=== PATIENT | female | born 1970 | race Caucasian/White ===

== ENCOUNTER 2021-03-24 17:13 | Emergency (ER) | payer OTHER, SELFPAY ==
[2021-03-24 17:57] VITALS: BP 124/77; PULSE 76; RESP 16; TEMP 37.2; O2SAT 96; BMI 22.6
--- NOTE | 2021-03-24 19:06 | ED.EAR ---
HPI - Ear Problem General Chief complaint: Ear Problems Stated complaint: ear infection? Source: patient Mode of arrival: ambulatory Limitations: no limitations History of Present Illness HPI Narrative: 50-year-old female presents with a sharp pain and lump behind her right ear. States that when she touches the back of the ear the pain radiates down to her throat. Feels like she has an ear infection, also states that she got some water stuck in her ear and it would not come out. MD Complaint: ear pain Location: right ear Duration: constant Severity: moderate Exacerbating factors: palpation Discharge from ear: no Treatment prior to arrival: none Related Data Allergies Allergy/AdvReac Type Severity Reaction Status Date / Time amoxicillin [AMOXICILLIN] Allergy Unknown HIVES Unverified 04/01/20 19:06 Penicillins [PCN] Allergy Unknown HIVES Unverified 04/01/20 19:06 Review of Systems Review of Systems: Constitutional: No Fever, No Chills ENT/Mouth: Positive right Ear Pain, No Hoarseness, No sore throat Eyes: No Eye Pain, No Swelling, No Redness, No Foreign Body Cardiovascular: No Chest Pain, No SOB Respiratory: No Cough, No Dyspnea Gastrointestinal: No Nausea, No Vomiting, No Diarrhea, No abdominal Pain Genitourinary: No Dysuria, No Hematuria Musculoskeletal: No joint pain, No Myalgias, No Joint Swelling Skin: No Skin lacerations, No rash Neuro: No Weakness, No Numbness, No Paresthesias, No Loss of Consciousness, No Dizziness, No Headache Psych: No Anxiety/Panic, No Depression Heme/Lymph: no easy bruising, no Lymphadenopathy Endocrine: No Polyuria, No Polydipsia Yes all other systems are reviewed and are negative [facility] Past Medical History Attestation statement: The following information was validated with the patient. Source: old records reviewed Social History Social History Advance Directives: No Physical Exam Vital Signs: Vital Signs: Last Vital Signs Temp 98.9 F 03/24/21 17:57 Pulse 76 03/24/21 17:57 Resp 16 03/24/21 17:57 BP 124/77 03/24/21 17:57 Pulse Ox 96 03/24/21 17:57 Body Mass Index 22.6 Appearance: Alert. Oriented X3. No acute distress. Head: Normal external exam. Normocephalic. Atraumatic. No Sanchez signs noted. No raccoon eyes noted Eyes: PERRLA. EOMI. Conjunctiva and sclera normal. Eyelids normal. ENT: TM's Normal. Pharynx normal. Uvula midline. Moist mucous membranes. No trismus noted. No drooling noted. No muffled voice noted. Neck: Normal inspection. Neck supple. No adenopathy. Thyroid Normal. No meningeal signs. No neck mass noted. CVS: Normal heart rate and rhythm. Heart sound normal. No murmurs noted. Pulses equal to all extremities. Respiratory: No respiratory distress. Painless inspiration. Abdomen: Soft and nontender. Back: Full range of motion noted. Skin: Skin warm and dry. Normal skin color. Pimple noted to the back of the right ear just below the mastoid. Extremities: No lower extremity edema. Extremities exhibit normal range of motion. Extremities nontender. Neuro: cranial nerves 2-12 intact, no focal neural deficits, strength 5/5 to all extremities, No motor deficit. No sensory deficit. Reflexes normal. Course Course Course Narrative: 50-year-old female presents with pain to the right ear, physical exam shows a pimple to the back of the ear right below the mastoid. Tympanic membranes are intact, no bulging or erythema, bilateral auditory canals are normal. Oropharyngeal exam is normal. Will give patient Tylenol. No indication for infection at this time. Patient verbalized understanding of and agrees to plan of care discharge home. MDM - Ear Differential Diagnosis Differential diagnosis: Likely otitis externa, otitis media, ruptured TM and cerumen impaction Medical Records Attestation: I reviewed the patient's medical records. Discharge Plan Discharge Clinical Impression: Skin pimple Acute ear pain Qualifiers: Laterality: right Qualified Code(s): H92.01 - Otalgia, right ear Patient Disposition: Home, Self-Care Instructions: Earache (ED) Additional Instructions: You were evaluated for right ear pain with lump behind the ear lobe. You have a small pimple behind the ear lobe. Visual exam action of a auditory canals and tympanic membranes are normal. Please use Tylenol Motrin as needed for pain management. Thank you for choosing this emergency department for evaluation. Please follow-up with primary care physician as needed. Return to the emergency department for any new, concerning, or worsening symptoms. Interventions: ED Discharge Assessment Last Done: 03/24/21 19:37 Discharge Date/Time: 03/24/21 19:38
[2021-03-24] MEDS: Acetaminophen 325 MG TABLET 650 MG PO (19:35)
== END 2021-03-24 19:38 | disposition home or self-care (01) ==
PROVIDERS: Emergency Provider Emergency Medicine; PCP Internal Medicine
DX: H92.01 Otalgia, right ear (principal); R23.8 Other skin changes
CPT/HCPCS: 99283

== ENCOUNTER 2021-08-17 09:46 | Emergency (ER) | payer OTHER, SELFPAY ==
[2021-08-17 09:52] VITALS: BP 121/77; PULSE 74; RESP 16; TEMP 36.9; O2SAT 98; BMI 23.1
--- NOTE | 2021-08-17 10:32 | ED_ITS ---
HPI - Ear Problem General Chief complaint: Ear Problems Stated complaint: Earache Time Seen by Provider: 08/17/21 10:32 Source: patient Mode of arrival: ambulatory Limitations: no limitations History of Present Illness HPI Narrative: 50-year-old female with a past medical history of TMJ syndrome presenting to the ED with complaints of right ear pain worse in the mornings when she wakes up especially when she yawns or she chews or palpates the area. She reports that she has not had an acute flare-up of TMJ syndrome in years. She reports she has been under lot of stress with a new job therefore she may be grinding at nighttime when she is sleeping. She denies any fevers, chills, dizziness, headaches, neck pain/stiffness, drainage of the ear, decreased hearing, thoughts of foreign bodies in the ear, sore throat, nasal congestion/rhinorrhea, chest pain or shortness of breath, nausea/vomiting/diarrhea constipation, rashes, recent travel or sick contacts or any other symptoms complaints or concerns at this time. MD Complaint: ear pain Location: right ear Duration: intermittent Severity: moderate Relieving factors: nothing Exacerbating factors: chewing, palpation and other (She reports worsening morning and when yawning) Discharge from ear: no Treatment prior to arrival: none Related Data Previous Rx's Medication Instructions Recorded metaxalone 800 mg tablet 800 mg PO TID PRN #14 tab 08/17/21 naproxen 500 mg tablet 500 mg PO BID PRN #14 tab 08/17/21 tramadol 50 mg tablet 50 mg PO Q8H PRN #14 tab 08/17/21 Allergies Allergy/AdvReac Type Severity Reaction Status Date / Time amoxicillin Allergy Unknown HIVES Unverified 04/01/20 19:06 [AMOXICILLIN] Penicillins [PCN] Allergy Unknown HIVES Unverified 04/01/20 19:06 Review of Systems Verdana 4l Review of Systems: Verdana 4d Verdana 4d Constitutional : No Weight loss, No Fever, No Chills, No Night Sweats, No Fatigue, No Malaise ENT/Mouth : + Ear Pain, No Hearing loss, No Nasal Congestion, No Sinus Pain, No Hoarseness, No sore throat, No Rhinorrhea, No Swallowing DifficultyDifficulty Eyes: No Eye Pain, No Swelling, No Redness, No Foreign Body, No Discharge, No Vision Changes Cardiovascular : No Chest Pain, No SOB, No Dyspnea on Exertion, No Orthopnea, No Edema, No Palpitations Respiratory : No Cough, No Sputum, No Wheezing, No Smoke Exposure, No Dyspnea Gastrointestinal : No Nausea, No Vomiting, No Diarrhea, No Constipation, No abdominal Pain, No Hematochezia, No Melena Genitourinary : no irregular bleeding, No Dysuria, No Urinary Frequency, No Hematuria, No Urinary Incontinence, No Urgency, No Flank Pain, No Urinary Flow Changes, No Hesitancy Musculoskeletal : No joint pain, No Myalgias, No Joint Swelling Skin : No Skin Lesions, No rash Neuro : No Weakness, No Numbness, No Paresthesias, No Loss of Consciousness, No Dizziness, No Headache Psych : No Anxiety/Panic, No Depression, No SI/HI/AH/VH, No Social Issues, Heme/Lymph: No Bruising, No Bleeding,No Lymphadenopathy Endocrine : No Polyuria, No Polydipsia, No Temperature Intolerance Yes all other systems are reviewed and are negative [facility] Past Medical History Attestation statement: The following information was validated with the patient. Medical History No known health problems Social History Social History Advance Directives: No Advance Directives Information Provided: No Physical Exam Verdana 4l Vital Signs: Verdana 4d Verdana 4d Vital Signs: Verdana 4d Verdana 4Bd Last Vital Signs Verdana 4d Lot Porter New 4d Lot Porter New 4d Temp 98.4 F 08/17/21 09:52 Lot Porter New 4d Pulse 74 08/17/21 09:52 Lot Porter New 4d Resp 16 08/17/21 09:52 BP 121/77 08/17/21 09:52 Pulse Ox 98 08/17/21 09:52 BMI result Body Mass Index 23.1 vital signs have been reviewed as normal and appeared to be correct. Blood pressure normal. Heart rate normal. Respiration rate normal. Temperature normal. Oxygen saturation normal. Appearance: Alert. Oriented X3. No acute distress. Head: Normal external exam. Normocephalic. Atraumatic. Eyes: PERRLA. EOMI. Conjunctiva and sclera normal. Eyelids normal. ENT: EAC normal. TM's Normal. Pharynx normal. Uvula midline. Moist mucous membranes. No trismus noted. No drooling noted. No muffled voice noted. When I palpate along her preauricular area and asked the patient to open and close her mouth she reports pain consistent with TMJ syndrome. There is also noted to be a click with movement of the mandible. Neck: Normal inspection. Neck supple. FROM. No adenopathy. Thyroid Normal. No meningeal signs. No neck mass noted. CVS: Normal heart rate and rhythm. Heart sound normal. Pulses normal throughout. No murmurs/rales/gallops. Respiratory: No respiratory distress. Painless inspiration. Breath sounds normal. No wheezes/rales/rhonchi noted. Chest nontender. No accessory muscle usage noted or decreased air movement noted. Back: Full range of motion noted. No rashes/lesion/induration/fluctuance or signs of infection noted. Skin: Skin warm and dry. Normal skin color. Normal skin turgor. No rashes/lesions/lacerations noted. Extremities: No lower extremity edema. Extremities exhibit normal range of motion. Extremities nontender. Neuro: Oriented X 3. No motor deficit. No sensory deficit. Reflexes normal. Normal steady gait. No focal neuro deficits noted. Vascular: + radial pulses Normal cap refill. No cyanosis noted to upper extremity nails Course Course Course Narrative: 50-year-old female with a past medical history of TMJ syndrome presenting to the ED with complaints of right ear pain worse in the mornings when she wakes up especially when she yawns or she chews or palpates the area. She reports that she has not had an acute flare-up of TMJ syndrome in years. She reports she has been under lot of stress with a new job therefore she may be grinding at nighttime when she is sleeping. She denies any fevers, chills, dizziness, headaches, neck pain/stiffness, drainage of the ear, decreased hearing, thoughts of foreign bodies in the ear, sore throat, nasal congestion/rhinorrhea, chest pain or shortness of breath, nausea/vomiting/diarrhea constipation, rashes, recent travel or sick contacts or any other symptoms complaints or concerns at this time. Exam consistent with TMJ syndrome especially patient has a history of this. Will DC home with symptomatic treatment instructions to follow up with the dentist and to buy a mouth guard especially at nighttime along with instructions to return if any new or worsening symptoms follow-up with primary care provider. Patient understands agrees this plan. MDM - Ear Medical Records Attestation: I reviewed the patient's medical records. Discharge Plan Discharge Clinical Impression: Bilateral temporomandibular joint pain-dysfunction syndrome Patient Disposition: Home, Self-Care Instructions: Temporomandibular Disorder (ED) Prescriptions: New naproxen 500 mg tablet 500 mg PO BID PRN (Reason: pain) Qty: 14 0RF metaxalone 800 mg tablet 800 mg PO TID PRN (Reason: muscle pain) Qty: 14 0RF tramadol 50 mg tablet 50 mg PO Q8H PRN (Reason: pain) Qty: 14 0RF Rx Instructions: May partially fill upon patient request Referrals: Andrew Shetty MD [Primary Care Provider] - 2 days Stand Alone Forms: Work/School Release Print Language: Kinyarwanda
== END 2021-08-17 10:50 | disposition home or self-care (01) ==
PROVIDERS: Emergency Provider Emergency Medicine Emergency Medical Services; PCP Internal Medicine
DX: M26.621 Arthralgia of right temporomandibular joint (principal); H92.01 Otalgia, right ear; Z79.899 Other long term (current) drug therapy
CPT/HCPCS: 99283

== ENCOUNTER 2023-08-27 16:05 | Emergency (ER) | payer OTHER, SELFPAY | END 2023-08-27 18:56 | disposition left against medical advice (07) | PROVIDERS: Emergency Provider Emergency Medicine | DX: U07.1 COVID-19 (principal) ==

== ENCOUNTER 2024-09-04 05:54 | Emergency (ER) | payer OTHER, SELFPAY ==
--- NOTE | ~2024-09-04 | XR_ITS ---
CLINICAL HISTORY: cough 2 view chest x-ray Comparison: None Findings: No consolidation or effusion. Heart size is normal. No acute fracture. IMPRESSION: 1. No acute findings. This document has been electronically signed by: Sheron Marquez MD on 09/04/2024 06:48:30
[2024-09-04 05:57] VITALS: BP 130/88; PULSE 109; RESP 20; TEMP 36.8; O2SAT 97; BMI 23.4
--- OUTSIDE RECORDS SUMMARY | 2024-09-04 06:06 | XMS_ITS ---
Author Organization [facility] Address [address] [place] [address] Care Team Providers Care [employer] Name Role Phone IVAN BERG Unavailable [phone] Allergies No Known Allergies REASON FOR VISIT RL to DARON, MELISSA, COVID-19 Medications Medication SIG (Take, Route, Fr equency, Duration) Notes Start Date End Date Status Atomoxetine HCl 60 MG 1 capsule in the m orning Orally Once a day Active Social History Tobacco Use: Social History Observation Description Date Details (start date - stop date) Former Smoker NA - NA Tobacco Use/Smoking Question Answer Notes Are you a former smoker How long has it been since you last smoked? 1-5 years Vital Signs Height 66 in 09/02/2023 Weight 143 lbs 09/02/2023 BMI 23.08 kg/m2 09/02/2023 Patient Reported Normal Bloo d PresurePatient Reported Normal Temperature Encounters Encounter Location Date Provider Diagnosis [facility] [address] [place] [address] 09/02/2023 IVAN BERG Suspected COVID-19 virus infection Z20.822 Assessments Encounter Date Diagnosis (ICD Code) Assessment Notes Treatment Notes Treatment Clinical Notes Section Notes 09/02/2023 Suspected COVID-19 virus infection (ICD-10 - Z20.822) PAXLOVID IS NOT INDICATED PAST 5 DAYS OTC SYMPTOMATIC TREATMENT IS RECOMMENDED , Coronavirus (COVID-19): Care Instructions material was published AI TRIAGE SUGGESTED ASSESSMENTS: J11.1 - Influenza due to unidentified influenza virus with other respiratory manifestations J06.9 - Acute upper respiratory infection, unspecified J30.9 - Allergic rhinitis, unspecified --- ---AI TRIAGE CLINICAL REASONIN. COVID-19: Likely due to exposure to a COVID-19 patient, presenting with typical symptoms such as cough, nasal symptoms, sore throat, and body aches. 2. Common cold: Possible differential due to overlapping symptoms with COVID-19. 3. Allergic rhinitis: Consider due to nasal symptoms and hoarseness. 09/02/2023 Other Follow the treatment plan as indicated by the provider. Take any medications as prescribed. If you have any questions about your prescription, ask the pharmacist or call our office. If your condition worsens, return to one of our local offices ([facility]), or go to the ER. Failure to seek timely care can result in , or disability. Risks, benefits, and side effects of medications (if any) discussed with patient. Patient agrees with treatment plan. AI TRIAGE SUGGESTED ASSESSMENTS: J11.1 - Influenza due to unidentified influenza virus with other respiratory manifestations J06.9 - Acute upper respiratory infection, unspecified J30.9 - Allergic rhinitis, unspecified --- ---AI TRIAGE CLINICAL REASONIN. COVID-19: Likely due to exposure to a COVID-19 patient, presenting with typical symptoms such as cough, nasal symptoms, sore throat, and body aches. 2. Common cold: Possible differential due to overlapping symptoms with COVID-19. 3. Allergic rhinitis: Consider due to nasal symptoms and hoarseness. Plan Of Treatment Treatment Notes Assessment Notes Suspected COVID-19 virus infection PAXLOVID IS NOT INDICATED PAST 5 DAYS OTC SYMPTOMATIC TREATMENT IS RECOMMENDED , Coronavirus (COVID-19): Care Instructions material was published Other Follow the treatment plan as indicated by the provider. Take any medications as prescribed. If you have any questions about your prescription, ask the pharmacist or call our office. If your condition worsens, return to one of our local offices ([facility]), or go to the ER. Failure to seek timely care can result in , or disability. Next Appt Details Follow Up: PCP, Reason: Progress Notes * RAMON MAKIOB:1970 (52 yo F)Acc No.[id number]:09/02/2023 Patient:?ZAY Maki Provider:?IVAN BERG MD :1970???Age:52 Y???Sex:Female D ate:09/02/2023 Phone: Address:[address] [place] [address] EL[place]IL[place]IO [id number] Subjective: * Chief Complaints: * ???RL to , ASYNC, COVID-19 * HPI: ???TeleHealth Complaint History:? Reason for visit:. ? 52 year-old female, not , presents with COVID-19, for 6 days or more. ?Medical History: No vaccination for COVID. ?Medications: Regular use of medications, Atomoxitine 60mg Take once in the morning, no prescription of Paxlovid in the last 2 weeks, no previous treatment for COVID and no previous use of antibiotics for similar symptoms. ?Allergies: Allergies to medications. ?Risk Factors: Exposure to a COVID-19 patient within the past 14 days and no hospitalization in the last month. ?Surgical History: No surgical procedure in the last year. * ROS:?All Other Systems:?Review of Systems (ROS)?See HPI for details.?The patient is also suffering from cough (dry), disordered taste, stuffed-up nose, nasal discharge, sore throat, hoarseness, body aches and nausea. The patient denies the following: wheezing, chest pain, loss of sense of smell, vomiting and diarrhea. * Medical History:? * Surgical History:?Denies Pas t Surgical History * Hospitalization/Major Diagno stic Procedure:?Denies Past Hospitalization * Family History:? denies. * Social History:?Tobacco Use:?Tobacco Use/Smoking?Are you a?former smoker ?How long has it been since you last smoked??1-5 years ???Drugs/Alcohol:?Do you drink alcohol?: No. * Medications:?TakingAtomoxeti ne HCl 60 MG Capsule 1 capsule in the morning Orally Once a dayMedication List reviewed and reconciled with the patientTaking Atomoxetine HCl 60 MG Capsule 1 capsule in the morning Orally Once a dayMedication List reviewed and reconciled with the patient * Allergies:?N.K.D.A.no[Allerg ies Verified] Objective: * Vitals:?Ht: 66 in, Wt:143 lb s, BMI:23.08 Index Patient Reported Normal Blood Presure Patient Reported Normal Temperature. Assessment: * Assessment: 1.?Suspected COVID-19 virus infection - Z20.822 (Primary)? AI TRIAGE SUGGESTED ASSESSME NTS: J11.1 - Influenza due to unidentified influenza virus with other respiratory manifestations J06.9 - Acute upper respiratory infection, unspecified J30.9 - Allergic rhinitis, unspecified --- ---AI TRIAGE CLINICAL REASONIN. COVID-19: Likely due to exposure to a COVID-19 patient, presenting with typical symptoms such as cough, nasal symptoms, sore throat, and body aches. 2. Common cold: Possible differential due to overlapping symptoms with COVID-19. 3. Allergic rhinitis: Consider due to nasal symptoms and hoarseness. Plan: * Treatment: 2.?Others? Notes: Follow the treatment plan as indicated by the provider. Take any medications as prescribed. If you have any questions about your prescription, ask the pharmacist or call our office. If your condition worsens, return to one of our local offices ([facility]), or go to the ER. Failure to seek timely care can result in , or disability.?? Clinical Notes:Risks, benefits, and side effects of medications (if any) discussed with patient. Patient agrees with treatment plan. ?? * Procedure Codes:?S9088 SERVI [facility] Tom[place]i [place] / CC Processing [id number] Office Visit, Est Pt., Level 2, delivered asynchronous, Modifiers: GQ * Follow Up:?PCP * Billing Information: * Visit Code:? * Procedure Codes:? S9088 SERVICES [facility]. MPFEE Merchant / CC Processing Fee. [id number] Office Visit, Est Pt., Level 2, delivered asynchronous. Modifiers: GQ Images * 09-02-2023 consent * Sign off status: Completed true * Provider:?IVAN BERG MD Date:?2023 Generated for Steven perry/Sandy/Gary on:?09/04/2024 06:05 AM EST History and Physical Notes * HPI (History of Present Illness) Category Sub-Category Detail Notes Category Not es TeleHealth Complaint History 52 year-old female, not , presents with COVID-19, for 6 days or more. Medical History: No vaccination for COVID. Medications: Regular use of medications, Atomoxitine 60mg Take once in the morning, no prescription of Paxlovid in the last 2 weeks, no previous treatment for COVID and no previous use of antibiotics for similar symptoms. Allergies: Allergies to medications. Risk Factors: Exposure to a COVID-19 patient within the past 14 days and no hospitalization in the last month. Surgical History: No surgical procedure in the last year.
--- OUTSIDE RECORDS SUMMARY | 2024-09-04 06:06 | XMS_ITS | Clinical Summary ---
Author Organization [address] Address [address] [place] [address] Phone Care Team Providers Care Mortgage Operations Manager Name Role Phone Jose Mayen MD Primary Care Provider [phone] Allergies Active Allergy Reactions Criticality Noted Date Comments Amoxicillin 03/30/2016 Penicillins 03/30/2016 Medications atomoxetine (STRATTERA) 80 mg capsule Take 1 capsule (80 mg total) by mouth 1 (one) time each day. 05/29/2024 Active valACYclovir (VALTREX) 500 mg tablet Take 1 tablet (500 mg total) by mouth 1 (one) time each day. 90 tablet 1 06/16/2024 Active Active Problems Problem Noted Date Diagnosed Date Genital herpes 09/26/2017 Overview (05/27/2024): Last Assessment & Plan: Offered a daily Valtrex dose for suppression. She agreed. Also given treatment dose with refills. Encounters Date Type Department Care Team Description 06/25/2024 Telephone Adult Medicine [address] [phone] Jessica Brar NP Results (Thyroid Biopsy ) 06/25/2024 Telephone Adult Medicine [address] [phone] Jose Mayen MD Lab Results 06/24/2024 8:10 AM EST - 06/24/2024 11:59 PM EST Hospital Encounter Radiology Department - [address] [phone] Thyroid nodule Discharge Disposition: Home or Self Care 06/10/2024 7:26 AM EST - 06/10/2024 11:59 PM EST Hospital Encounter Radiology [facility] - [address] [phone] Physical exam; Encounter for screening mammogram for malignant neoplasm of breast; Encounter for screening for malignant neoplasm of colon; Rosacea Discharge Disposition: Home or Self Care 06/10/2024 Telephone Adult Medicine [address] [phone] Jessica Brar SPORTS BOOK BOARD ATTENDANT Results (US of the neck ) from Last 3 Months Immunizations Name Administration Dates Next Due Tdap Tetanus diptheria acell ular pertussis (Boostrix; Adacel) 7yo and older 01/31/2023 Surgical History Surgery Date Site/Laterality Comments TUBAL LIGATION PROCEDURE: HISTORICAL TUBAL LIGATION Medical History Medical History Date Comments Urge incontinence 07/12/2016 DX:Urge incont inence; COMMENT: Demarcus Plummer normal cysto Genital HSV DX:Genital HSV Overactive bladder DX:Overactive bladder Family History Medical History Relation Name Comments No Known Problems Father No Known Problems Maternal Grandfather No Known Problems Maternal Grandmother Arthritis Mother Other: gout Mother Other: tachycardia Mother Relation Name Status Comments Father Maternal Grandfather Maternal Grandmother Mother Alive Social History Tobacco Use Types Packs/Day Years Used Date Smoking Tobacco: Every Day Smokeless Tobacco: Never Alcohol Use Standard Drinks/Week Comments No 0 (1 standard drink = 0.6 oz pur e alcohol) Comments Unknown Sex and Gender Information Value Date Recorded Sex Assigned at Not on file Legal Sex Female 6:56 AM EST Gender Identity Not on file Sexual Orientation Not on file Obstetrics History Last Filed Vital Signs Vital Sign Reading Time Taken Comments Blood Pressure 134/88 06/02/2024 5:43 PM EST Pulse 86 06/02/2024 4:59 PM EST Temperature 36.5 ??C (97.7 ??F) 06/02/2024 4:59 PM ES T Respiratory Rate 16 06/02/2024 4:59 PM EST Oxygen Saturation 97% 06/02/2024 4:59 PM EST Inhaled Oxygen Concentration - - Weight 66.6 kg (146 lb 12.8 oz) 06/02/2024 4:59 PM EST Height 167.6 cm (5' 6 ) 06/02/2024 4:59 PM EST Body Mass Index 23.69 06/02/2024 4:59 PM EST Plan of Treatment Upcoming Encounters Date Type Department Care Team (Late st Contact Info) Description 11/04/2024 2:30 PM EDT Office Visit Obstetrics and Gynecology - [address] [phone] Paulette Knig, ANNA [address] [place] [address] Health Maintenance Due Date Last Done Comments Hepatitis A Vaccines (1 of 2 - Risk 2-dose series) 1988 Pneumococcal Vaccine: 50+ Years (1 of 2 - PCV) 1988 Colorectal Cancer Screening: Colonoscopy 06/18/2022 Social Influencers of Health Screening 06/18/2022 Cholesterol Screening (Lipid Panel) 07/31/2023 07/31/2018 Breast Cancer Screening 05/24/2024 05/24/20, 12/21/2020, 10/02/2018, Additional history exists Depression Screening 06/02/2025 06/02/2024 Cervical Cancer Screening: HPV 12/21/2026 12/21/2021 DTaP,Tdap,and Td Vaccines (2 - Td or Tdap) 01/31/2033 01/31/2023 HIV Screening Completed 11/21/2016 Hepatitis C Screening Completed 11/21/2016 COVID-19 Vaccine Discontinued 06/21/2021, 09/2020, 10/29/2020 HIB Vaccines Aged Out No longer eligi ble based on patient's age to complete this topic HPV Vaccines Aged Out No longer eligi ble based on patient's age to complete this topic Hepatitis B Vaccines Discontinued IPV Vaccines Aged Out No longer eligi ble based on patient's age to complete this topic Influenza Vaccine Discontinued MMR Vaccines Aged Out No longer eligi ble based on patient's age to complete this topic Meningococcal ACWY Vaccine Aged Out N o longer eligible based on patient's age to complete this topic Meningococcal B Vacine Aged Out No lo nger eligible based on patient's age to complete this topic Pneumococcal Vaccine: Pediatrics (0 to 5 Years) and At-Risk Patients (6 to 64 Years) Discontinued RSV Immunization Patients Under 20 months Aged Out No longer eligible based on patient's age to complete this topic Varicella Vaccines Aged Out No longer eligible based on patient's age to complete this topic Zoster Vaccines Discontinued Procedures Procedure Name Priority Date/Time Associated Diagnosis Comments US GUIDED FINE NDL ASP 1ST LESION Routine 06/24/2024 8:41 AM EST Thyroid nodule FINE NEEDLE ASPIRATION STAT 06/24/2024 8:36 AM EST Thyroid nodule US HEAD NECK SOFT TISSUE Routine 06/10/2024 7:54 AM EST Physical exam Encounter for screening mammogram for malignant neoplasm of breast Encounter for screening for malignant neoplasm of colon Rosacea SCREENING MAMMOGRAPHY BI 2-VIEW BREAST INC CAD Routine 05/24/2022 2:38 PM EST Encounter for screening mammogram for malignant neoplasm of breast HPV Routine 12/21/2021 LIPID PANEL Routine 07/31/2018 HEPATITIS C SCREENING Routine 11/21/2016 HIV SCREENING Routine 11/21/2016 from Last 3 Months or Most Recently Relevant to Health Maintenance Results * US Guided Fine Ndl Asp 1st Lesion (06/24/2024 8:41 AM EST) Anatomical Region Laterality Modality Ultrasound 06/24/2024 12:1 3 PM EST Narrative 06/24/2024 12:15 PM EST Ultrasound-Guided Fine-Needle Aspiration ??LEFT Thyroid Nodule HISTORY: Solitary left thyroid nodule. TECHNIQUE: Informed consent was obtained from the patient. Potential complications including infection, bleeding and inadequate sample are discussed with the patient. Topical anesthetic spray was applied to the skin overlying the left side of the neck. Skin overlying the ??left side of the neck was prepped with BETADINE. Under ultrasound guidance, 3 passes with 3 separate 27-gauge needles were made into the dominant nodule occupying most of the left lobe of the thyroid. ??Several droplets of bloody material were obtained. ??ThinPrep slides were prepared. ??All 3 needles were rinsed in preservative solution. The patient tolerated the procedure well without any immediate complications. -------- FINAL REPORT -------- Dictated By: Tiffanie Henderson Dictated Date: 06/24/2024 12:13 ET Assigned Physician: Tiffanie Henderson Reviewed and Electronically Signed By: Tiffanie Henderson Signed Date: 06/24/2024 12:15 ET Workstation ID: [id number] Transcribed By: Self Edit Transcribed Date: 06/24/2024 12:13 ET Procedure Note Tiffanie Henderson MD - 06/24/2024 Ultrasound-Guided Fine-Needle Aspiration LEFT Thyroid Nodule HISTORY: Solitary left thyroid nodule. TECHNIQUE: Informed consent was obtained from the patient. Potential complications including infection, bleeding and inadequatesample are discussed with the patient. Topical anesthetic spray was applied to the skin overlying the left sideof the neck. Skin overlying the left side of the neck was prepped with BETADINE. Under ultrasound guidance, 3 passes with 3 separate 27-gauge needles weremade into the dominant nodule occupying most of the left lobe of thethyroid. Several droplets of bloody material were obtained. ThinPrepslides were prepared. All 3 needles were rinsed in preservativesolution. The patient tolerated the procedure well without any immediatecomplications. -------- FINAL REPORT -------- Dictated By: Tiffanie Henderson Dictated Date: 06/24/2024 12:13 ET Assigned Physician: Tiffanie Henderson Reviewed and Electronically Signed By: Tiffanie Henderson Signed Date: 06/24/2024 12:15 ET Workstation ID: [id number] Transcribed By: Self Edit Transcribed Date: 06/24/2024 12:13 ET us Jessica Brar NP IMG US PROCEDURES Final Resu lt * Fine needle aspiration (06/24/2024 8:36 AM EST) Final Diagnosis Left thyroid, fine needle aspiration (ThinPrep, direct smears): Benign ([place] Category II) Consistent with follicular nodular disease (includes adenomatoid nodule, colloid nodule, etc.) 06/25/2024 2:[address] [facility] Specimen A Adequacy Satisfactory for evaluation 06/25/2024 2:[address] [facility] Gross Description A. Thyroid, Left, LT THYROID: Received in Cytolyt 30 ml of light pink fluid; 1 ThinPrep,2 pap stained direct smears. 06/25/2024 2:[address] [facility] Disclaimer Unless otherwise specified, all tissue is 10% NB formalin fixed and paraffin embedded. Technical cytopathology services provided by [facility], at [address] [place] [id number] (CLIA # [id number]/Lidia Kaur MD, Cement Car Dumper.) 06/25/2024 2:[address] [facility] Fine Needle Aspirate Structure of left lobe of thyroid gland / Unknown 06/24/2024 8:36 AM EST 06/25/2024 10:31 AM EST us Tiffanie Henderson MD LAB PATHOLOGY ORDERABLES Final Result [facility] [address] [place] [address], * US Head Neck Soft Tissue (06/10/2024 7:54 AM EST) Anatomical Region Laterality Modality Head and Neck Ultrasound 06/10/2024 8:43 AM EST Impressions 06/10/2024 8:51 AM EST Left thyroid nodule meets criteria for fine needle aspiration. TI-RADS 2017 reference: Jeff FN, Vic WD, Preston EG, et al. ACR Thyroid Imaging, Reporting and Data System (TI-RADS): White Paper of the ACR TI-RADS Committee. J Am [place] Radiol. Volume 14, Issue 5 , 586 - 406. http://www.jacr.org/article/[email or web address])[email or web address]/fulltext ACR TI-RADS recommendations: TR1 and TR2: No FNA or follow-up. TR3: FNA if greater than 2.4 cm, follow-up if 1.5-2.4 cm in 1, 3 and 5 years. TR4: FNA if greater than 1.4 cm, follow-up if 1.0-1.4 cm in 1, 2, 3 and 5 years. TR5: FNA if greater than 0.9 cm, follow-up if 0.5-0.9 cm every year for 5 years. TI-RADS calculator: http://tiradscalculator.com/ -------- FINAL REPORT -------- Dictated By: Cristian Lawler Dictated Date: 06/10/2024 08:43 ET Assigned Physician: Cristian Lawler Reviewed and Electronically Signed By: Cristian Lawler Signed Date: 06/10/2024 08:51 ET Workstation ID: [id number] Transcribed By: Self Edit Transcribed Date: 06/10/2024 08:43 ET Narrative 06/10/2024 8:51 AM EST THYROID ULTRASOUND INDICATION: abnormal Thyroid levels. Patient report sensatof lump at the throat TECHNIQUE: Ultrasound evaluation of the thyroid gland was performed with andersen scale and color Doppler imaging. COMPARISON: None FINDINGS: ACR TI-RADS criteria was utilized for nodule description and follow-up recommendations. RIGHT THYROID: Right thyroid lobe demonstrates ??homogeneous echotexture measuring 4.6 x 1.5 x 1.6 cm. No thyroid nodules greater than 0.5 cm identified. ?? LEFT THYROID: Left thyroid lobe demonstrates ??homogeneous echotexture measuring 6.3 x 2.5 x 3.5 cm. ??Nodule(s) in the left lobe (greater than or equal to 0.5 cm) are as described: 1. Nodule in involving almost the entire left lobe is solid (2), hypoechoic (2), ??[id number] (0), with ill-defined margins (0) and without internal echogenic foci (0). Nodule measures 5.3 x 2.5 x 4.2 cm. ??As per ACR TI-RADS nodule is categorized as TR-4. ??Recommendation per ACR-TIRADS: This nodule meets criteria for fine needle aspiration. ISTHMUS: The isthmus measures 0.3 cm. No thyroid nodules greater than 0.5 cm identified. VASCULARITY: Color doppler demonstrates normal blood flow to thyroid gland. Procedure Note Cristian Lawler MD - 06/10/2024 THYROID ULTRASOUND INDICATION: abnormal Thyroid levels. Patient report sensatof lump at thethroat TECHNIQUE: Ultrasound evaluation of the thyroid gland was performed withgray scale and color Doppler imaging. COMPARISON: None FINDINGS: ACR TI-RADS criteria was utilized for nodule description and follow-uprecommendations. RIGHT THYROID: Right thyroid lobe demonstrates homogeneous echotexturemeasuring 4.6 x 1.5 x 1.6 cm. No thyroid nodules greater than 0.5 cmidentified. LEFT THYROID: Left thyroid lobe demonstrates homogeneous echotexturemeasuring 6.3 x 2.5 x 3.5 cm. Nodule(s) in the left lobe (greater than orequal to 0.5 cm) are as described: 1. Nodule in involving almost the entire left lobe is solid (2),hypoechoic (2), [id number]-jzvd-[id number] (0), with ill-defined margins (0) andwithout internal echogenic foci (0). Nodule measures 5.3 x 2.5 x 4.2 cm.As per ACR TI-RADS nodule is categorized as TR-4. Recommendation perACR-TIRADS: This nodule meets criteria for fine needle aspiration. ISTHMUS: The isthmus measures 0.3 cm. No thyroid nodules greater than 0.5cm identified. VASCULARITY: Color doppler demonstrates normal blood flow to thyroidgland. IMPRESSION: Left thyroid nodule meets criteria for fine needle aspiration. TI-RADS 2017 reference: Jeff FN, Vic WD, Preston EG, et al. ACR Thyroid Imaging, Reportingand Data System (TI-RADS): White Paper of the ACR TI-RADS Committee. J AmColl Radiol. Volume 14, Issue 5 , 587 - 595. http://www.jacr.org/article/P[address]957-4684(17)81337-2/fulltext ACR TI-RADS recommendations: TR1 and TR2: No FNA or follow-up. TR3: FNA if greater than 2.4 cm, follow-up if 1.5-2.4 cm in 1, 3 and 5years. TR4: FNA if greater than 1.4 cm, follow-up if 1.0-1.4 cm in 1, 2, 3 and 5years. TR5: FNA if greater than 0.9 cm, follow-up if 0.5-0.9 cm every year for 5years. TI-RADS calculator: http://tiradscalculator.com/ -------- FINAL REPORT -------- Dictated By: Cristian Lawler Dictated Date: 06/10/2024 08:43 ET Assigned Physician: Cristian Lawler Reviewed and Electronically Signed By: Cristian Lawler Signed Date: 06/10/2024 08:51 ET Workstation ID: [id number] Transcribed By: Self Edit Transcribed Date: 06/10/2024 08:43 ET us Jessica Brar SPORTS BOOK BOARD ATTENDANT IMG US PROCEDURES Final Resu lt * SCREENING MAMMOGRAPHY BI 2-VIEW BREAST INC CAD (05/24/2022 2:38 PM EST) Anatomical Region Laterality Modality Radiographic Sabrina ging 12/21/2020 1:12 PM EDT Narrative 05/25/2022 1:53 PM EST This is a summary report. The complete report is available in the patient's medical record. If you cannot access the medical record, please contact the sending organization for a detailed fax or copy. BILATERAL 2D and 3D DIGITAL SCREENING MAMMOGRAM History: Routine screening. ??No current breast complaints. ?? Comparison: Multiple priors dating back to 09/26/2017 Technique: Bilateral full-field digital 2D and 3D mammography was performed using standard CC and MLO projections CAD was used to evaluate this mammogram. Findings: Density: ?? The breasts are heterogeneously dense which may obscure small masses-C RIGHT: No suspicious masses, groups of microcalcification or areas of architectural distortion identified. Stable typically benign parenchymal asymmetries LEFT: No suspicious masses, groups of microcalcifications or areas of architectural distortion identified. Stable typically benign parenchymal asymmetries IMPRESSION: : 1. ??No mammographic evidence of malignancy. BI-RADS Category 2 benign findings Recommendation: Routine annual screening mammography is recommended Procedure Note Vicente Ferrell MD - 08/20/2023 This is a summary report. The complete report is available in thepatient's medical record. If you cannot access the medical record, pleasecontact the sending organization for a detailed fax or copy. BILATERAL 2D and 3D DIGITAL SCREENING MAMMOGRAM History: Routine screening. No current breast complaints. Comparison: Multiple priors dating back to 09/26/2017 Technique: Bilateral full-field digital 2D and 3D mammography wasperformed using standard CC and MLO projections CAD was used to evaluate this mammogram. Findings: Density: The breasts are heterogeneously dense which may obscure smallmasses-C RIGHT: No suspicious masses, groups of microcalcification or areas ofarchitectural distortion identified. Stable typically benign parenchymalasymmetries LEFT: No suspicious masses, groups of microcalcifications or areas ofarchitectural distortion identified. Stable typically benign parenchymalasymmetries IMPRESSION: : 1. No mammographic evidence of malignancy. BI-RADS Category 2 benign findings Recommendation: Routine annual screening mammography is recommended Result [facility] Paulette King [facility] IMG XR PROCEDURES Final Result * Cervical Cancer Screening: HPV (12/21/2021) [facility] Cervical Cancer Screening: HPV Negative, Abstracted Result [facility] Provider HEALTH MAINTENANCE Final Result * Lipid panel (07/31/2018) [facility] LDL/HDL Ratio 3 0 - 4 Triglycerides 117 1 - 150 mg/dL Cholesterol 149 0 - 200 mg/dL HDL 49 >=40 mg/dL LDL Cholesterol 77 0 - 100 mg/dL Blood Venous blood specimen / Unknown Result [facility] Historical Provider LAB BLOOD ORDERABLES Mahsa l Result * HIV Screening (11/21/2016) [facility] HIV Screening Abstracted us Historical Provider HEALTH MAINTENANCE Final Result * Hepatitis C Screening (11/21/2016) Hepatitis C Screening Abstracted Historical Provider HEALTH MAINTENANCE Final Result from Last 3 Months or Most Recently Relevant to Health Maintenance Insurance [facility] Care Teams Mortgage Operations Manager Relationship Specialty Start Date End Date Jose Mayen MD [address] [place] [address] PCP - General 03/21/23
[2024-09-04 06:25] LABS: Basophils Percent Auto 0.6 % (0-2); Eosinophils Percent Auto 0.1 % (0-4); Hematocrit 40.4 % (37.0-47.0); Imm Gran Abs Auto 0.02 X10*3/uL (0.00-0.03); Imm Gran Pct Auto 0.3 % (0.0-0.4); Lymphocytes Absolute Auto 1.7 X10*3/uL (1.2-4.9); Lymphocytes Percent Auto 25.4 % (20-40); Mean Corpuscular HGB Conc 34.7 g/dl (31.0-35.0); Mean Corpuscular Hemoglobin 30.6 pg (27.0-33.0); Mean Corpuscular Volume 88.2 fL (80.0-98.0); Monocytes Absolute Auto 0.6 X10*3/uL (0.1-1.2); Monocytes Percent Auto 9.2 % (2-11); Neutrophils Absolute Auto 4.3 x10*3/uL (2.0-8.3); Neutrophils Percent Auto 64.4 % (45-73); Platelet Count 364 X10*3/uL (160-400); Red Blood Count 4.58 X10*6/uL (4.20-5.50); Red Cell Distribution Width 11.7 % (11.0-16.0); White Blood Count 6.7 X10*3/uL (4.8-10.8)
[2024-09-04 06:26] LABS: MANUAL DIFF FLAG NO
[2024-09-04 06:45] LABS: Alanine Aminotransferase 46 U/L (0-31); Albumin Level 3.7 g/dL (3.5-5.0); Alkaline Phosphatase 62 U/L (39-117); Anion Gap 12 (12-20); Aspartate Amino Transferase 33 U/L (5-31); Bilirubin Total 0.6 mg/dL (0.0-1.0); Blood Urea Nitrogen 12 mg/dL (9-16); Calcium 8.8 mg/dL (8.4-10.2); Carbon Dioxide 23 mmol/L (22-29); Chloride 110 mmol/L (96-108); Creatinine Clr Calc Pharmacy 98.7; Estimated Glomerular Filt Rate > 60; Glucose Random 96 mg/dL (60-115); Potassium 4.3 mmol/L (3.3-5.1); Sodium 141 mmol/L (135-145); Total Protein 6.8 g/dL (6.5-8.0)
[2024-09-04 07:02] LABS: Influenza A PCR NEGATIVE (Negative); Influenza B PCR NEGATIVE (Negative); Resp Syncy Virus RNA Qual PCR NEGATIVE (Negative); SARS COV2 PCR INHOUSE NEGATIVE (Negative)
[2024-09-04 12:16] VITALS: BP 119/73; PULSE 86; RESP 18; TEMP 36.6; O2SAT 97
--- NOTE | 2024-09-04 20:24 | ED_ITS ---
HPI - General Adult General Chief complaint: Upper Respiratory Symptoms Stated complaint: flu like Time Seen by Provider: 09/04/24 20:17 Source: patient, RN notes reviewed and old records reviewed Mode of arrival: ambulatory Limitations: no limitations History of Present Illness ED Provider: Oni RIBEIRO narrative: 53-year-old female presents for evaluation of cough and fatigue. She reports that her symptoms started 2 or 3 weeks ago. Denies any fevers or chills currently but reports that when her symptoms started a few weeks ago she did have subjective fevers She reports that her cough is productive of yellow to green sputum. She reports facial pressure and a mild sore throat. No chest pain Related Data Previous Rx's ?Medication ?Instructions ?Recorded metaxalone 800 mg tablet 800 mg PO TID PRN muscle pain #14 08/17/21 tabs naproxen 500 mg tablet 500 mg PO BID PRN pain #14 tabs 08/17/21 tramadol 50 mg tablet 50 mg PO Q8H PRN pain #14 tabs 08/18/21 azithromycin 250 mg tablet 250 mg PO DAILY 4 days #4 tabs 09/04/24 prednisone 20 mg tablet 40 mg (2 x 20 mg) PO DAILY #8 tabs 09/04/24 Allergies Allergy/AdvReac Type Severity Reaction Status Date / Time amoxicillin [AMOXICILLIN] Allergy Unknown HIVES Verified 09/04/24 05:59 Penicillins [PCN] Allergy Unknown HIVES Verified 09/04/24 05:59 Review of Systems 2 Constitutional: Constitutional: Reports body ache(s), Denies chills, Denies fever(s), Reports headache(s), Reports lethargy, Reports malaise and Reports weakness Eyes: Eyes: Denies blurry vision ENT: Denies vertigo, Denies dizziness, Reports headache(s) and Reports sore throat Cardiovascular: Cardiovascular: Denies chest pain, Denies dyspnea and Denies dyspnea on exertion Respiratory: Respiratory: Reports change in phlegm color, Reports cough, Reports excessive phlegm production, Denies dyspnea, Denies dyspnea on exertion and Reports wheezing Gastrointestinal: Gastrointestinal: Denies abdominal pain, Denies nausea and Denies vomiting Musculoskeletal: Musculoskeletal: Denies back pain Integumentary/Breasts: Skin/Breast: Denies rash Neurologic: Denies vertigo, Denies dizziness, Reports headache(s) and Reports weakness Psychiatric: Psychiatric: Denies anxiety Allergic/Immunologic: Allergic/Immunologic: Reports wheezing PMFSH Past Medical History Medical History No known health problems Social History Social History Advance Directives: No Advance Directives Information Provided: Yes Physical Exam ED Vital Signs: Vital Signs - 24 hr 09/04/24 05:57 09/04/24 12:16 Temperature 98.2 F 98 F Pulse Rate 109 H 86 Respiratory Rate 20 18 Blood Pressure 130/88 119/73 Pulse Oximetry 97 97 Oxygen Delivery Method Room Air Room Air BMI result Body Mass Index 23.4 Const General: healthy appearing, comfortable, no acute distress, alert and awake Nutritional Appearance: well nourished Orientation/consciousness: patient oriented x3 HENMT Head: Yes normocephalic and Yes atraumatic Throat: Yes posterior oropharynx normal Eyes Eyelids: Yes eyelids normal Conjunctivae: conjunctivae normal Sclerae: sclerae normal Corneas: corneas normal Pupils: Equal, round and reactive pupils present EOM: EOMs intact bilaterally Neck Neck: Yes full ROM Resp Effort & Inspection: normal respiratory effort, able to speak in complete sentences, no audible wheezes and not labored Auscultation: clear to auscultation bilaterally Cardio Rate: regular rate Rhythm: regular rhythm Skin General skin exam: elasticity normal Neuro General: patient oriented x3 Cranial nerves: Yes Equal, round and reactive pupils present and Yes Bilaterally intact EOM present Cognition (Neuro): normal cognition Extrem Other: Moving all extremities well without any obvious deformities Medical Decision Making Medical Decision Making [facility] Narrative: 53-year-old female presents for evaluation of upper respiratory symptoms. She was quite well appearing, vital signs are stable. Her chest x-ray is clear, no evidence of pneumonia or effusions. Viral swabs negative, labs are reassuring. I suspect her symptoms are related to a post viral infection, upper respiratory infection or sinusitis. Given her symptoms have been present for 3 weeks we will treat with azithromycin and prednisone. She does have a penicillin allergy Differential Diagnosis Differential Diagnoses: The differential diagnosis associated with the presentation includes Upper respiratory infection Bronchitis Laryngitis Sinusitis Pneumonia Lab Data [facility] Lab Attestation statement: I reviewed the patient's lab results. No leukocytosis or anemia. Normal platelet count. No significant electrolyte abnormalities warranting intervention 09/04/24 06:20 09/04/24 06:20 Labs: Lab Results 09/04/24 Range/Units 06:20 WBC 6.7 (4.8-10.8) X10*3/uL RBC 4.58 (4.20-5.50) X10*6/uL Hgb 14.0 (12.0-16.0) g/dl Hct 40.4 (37.0-47.0) % MCV 88.2 (80.0-98.0) fL MCH 30.6 (27.0-33.0) pg MCHC 34.7 (31.0-35.0) g/dl RDW 11.7 (11.0-16.0) % Plt Count 364 (160-400) X10*3/uL MPV 9.0 L (9.4-12.3) fL Immature Gran % (Auto) 0.3 (0.0-0.4) % Neut % (Auto) 64.4 (45-73) % Lymph % (Auto) 25.4 (20-40) % Andrew % (Auto) 9.2 (2-11) % Eos % (Auto) 0.1 (0-4) % Baso % (Auto) 0.6 (0-2) % Lymph # (Auto) 1.7 (1.2-4.9) X10*3/uL Andrew # (Auto) 0.6 (0.1-1.2) X10*3/uL Eos # (Auto) 0.0 (0.0-0.4) X10*3/uL Baso # (Auto) 0.0 (0.0-0.2) X10*3/uL Abs Immat Gran (auto) 0.02 (0.00-0.03) X10*3/uL Absolute Neuts (auto) 4.3 (2.0-8.3) x10*3/uL Absolute Nucleated RBC 0.000 (0.0-0.012) X10*3/uL Nucleated RBC % (auto) 0.0 (0.0-0.2) /100WBC Sodium 141 (135-145) mmol/L Potassium 4.3 (3.3-5.1) mmol/L Chloride 110 H (96-108) mmol/L Carbon Dioxide 23 (22-29) mmol/L Anion Gap 12 (12-20) BUN 12 (9-16) mg/dL Creatinine 0.61 (0.5-1.4) mg/dL Estim Creat Clear Calc 98.7 Estimated GFR > 60 Random Glucose 96 (60-115) mg/dL Calcium 8.8 (8.4-10.2) mg/dL Total Bilirubin 0.6 (0.0-1.0) mg/dL AST 33 H (5-31) U/L ALT 46 H (0-31) U/L Alkaline Phosphatase 62 (39-117) U/L Total Protein 6.8 (6.5-8.0) g/dL Albumin 3.7 (3.5-5.0) g/dL Influenza Type A (PCR) NEGATIVE (Negative) Influenza Type B (PCR) NEGATIVE (Negative) RSV RNA Qual (PCR) NEGATIVE (Negative) SARS-CoV-2 RNA (RT-PCR) NEGATIVE (Negative) Independent Interpretation I performed an independent interpretation of an: Plain X-Ray (Agree with Radiology interpretation) Radiology Impression Discussion of test interpretation with radiology: I have reviewed the radiologist's reading. (No acute disease) Discharge Plan Discharge Clinical Impression: Upper respiratory infection Patient Disposition: Home, Self-Care Instructions: Upper Respiratory Infection (ED) Additional Instructions: Your workup in the ER today was reassuring. This includes your chest x-ray, viral swabs and blood work. Take azithromycin as prescribed. Your 1st dose was given today, so you will take 1 pill a day for the next 4 days starting tomorrow Take prednisone 40 mg days starting tomorrow Follow-up with your primary doctor, return for new or worsening symptoms Prescriptions: New azithromycin 250 mg tablet 250 mg PO DAILY 4 Days Qty: 4 0RF Rx Instructions: start on day 2 of therapy prednisone 20 mg tablet 40 mg PO DAILY Qty: 8 0RF No Action naproxen 500 mg tablet 500 mg PO BID PRN (Reason: pain) Qty: 14 0RF metaxalone 800 mg tablet 800 mg PO TID PRN (Reason: muscle pain) Qty: 14 0RF tramadol 50 mg tablet 50 mg PO Q8H PRN (Reason: pain) Qty: 14 0RF Rx Instructions: Patient may request partial fill Print Language: Swedish
[2024-09-04 20:44] VITALS: BP 135/83; PULSE 88; RESP 16; TEMP 36.8; O2SAT 97
[2024-09-04] MEDS: Azithromycin 500 MG TABLET PO (20:44)
[2024-09-04] MEDS: predniSONE 20 MG TABLET 40 MG PO (20:44)
[2024-09-04 20:53] VITALS: BP 135/83; PULSE 88; RESP 16; TEMP 36.8; O2SAT 97
== END 2024-09-04 20:54 | disposition home or self-care (01) ==
PROVIDERS: Emergency Provider Internal Medicine; PCP Internal Medicine
DX: J06.9 Acute upper respiratory infection, unspecified (principal); R05.9 Cough, unspecified; J02.9 Acute pharyngitis, unspecified; R50.9 Fever, unspecified; Z03.818 Encounter for observation for suspected exposure to other biological agents ruled out
CPT/HCPCS: 0241U; 71046; 80053; 85025; 99283; 99284

== ENCOUNTER → 2024-09-04 06:04 | Outpatient (BNV) | payer OTHER, SELFPAY | PROVIDERS: PCP Internal Medicine; Visit Provider Radiology Diagnostic Radiology | DX: R05.9 Cough, unspecified (principal) | CPT/HCPCS: 71046 ==